=== PATIENT | male | born 1945 | race Two or more races ===

== ENCOUNTER 2024-05-17 09:56 | Emergency (ER) | payer BC ==
[~2024-05-17] VITALS: Ht 190.5 cm; Wt 79.4 kg
[2024-05-17] MEDS ORDERED: LIPITOR40 MG PO (11:02)
== END 2024-05-17 13:55 | disposition home or self-care (01) ==
LOC: ER 09:59
DX: S52.592A Other fractures of lower end of left radius, initial encounter for closed fracture (principal); V19.9XXA Pedal cyclist (driver) (passenger) injured in unspecified traffic accident, initial encounter; Y93.89 Activity, other specified; Y92.89 Other specified places as the place of occurrence of the external cause; Y99.9 Unspecified external cause status; Z85.89 Personal history of malignant neoplasm of other organs and systems

== ENCOUNTER 2024-05-24 14:16 | Outpatient (CLI) | payer BC ==
[~2024-05-24 14:16] MED LIST: LIPITOR40 MG PO
== END 2024-05-24 14:21 | disposition home or self-care (01) ==
LOC: RAD 14:16
PROVIDERS: ATTEND Orthopaedic Surgery
DX: S52.532A Colles' fracture of left radius, initial encounter for closed fracture (principal); X58.XXXA Exposure to other specified factors, initial encounter; Y93.9 Activity, unspecified; Y92.9 Unspecified place or not applicable; Y99.9 Unspecified external cause status